=== PATIENT | male | born 1990 | race African-American/Black ===

== ENCOUNTER 2017-09-23 07:27 | Emergency (ER) | payer MEDICAID, OTHER ==
[~2017-09-23] VITALS: Ht 185.4 cm; Wt 72.6 kg
[2017-09-23 07:46] VITALS: BP 144/92
[2017-09-23] MEDS ORDERED: cefTRIAXone SOD 1,000 MG VL IM ONE (08:30)
== END 2017-09-23 08:50 | disposition home or self-care (01) ==
LOC: ER 07:27
DX: K04.7 Periapical abscess without sinus (principal)
CPT/HCPCS: 41800; 96372; 99283; J0696

== ENCOUNTER 2018-09-11 09:52 | Emergency (ER) | payer MEDICAID ==
[~2018-09-11] VITALS: Ht 185.4 cm; Wt 81.6 kg
[2018-09-11 10:16] VITALS: BP 135/82
[2018-09-11 11:07] LABS: Urine Bacteria NONE SEEN /hpf (None Seen); Urine Blood Negative /uL (Negative); Urine Mucus FEW (None Seen); Urine Specific Gravity 1.034 (1.001-1.035); Urine Sperm PRESENT /hpf (None Seen); Urine WBC 4 /hpf (0 - 3)
== END 2018-09-11 11:30 | disposition home or self-care (01) ==
LOC: ER 09:52
DX: R39.198 Other difficulties with micturition (principal); R35.0 Frequency of micturition; R39.15 Urgency of urination; J45.909 Unspecified asthma, uncomplicated; F17.210 Nicotine dependence, cigarettes, uncomplicated
CPT/HCPCS: 81001; 87086

== ENCOUNTER 2018-09-20 11:25 | Emergency (ER) | payer MEDICAID ==
[~2018-09-20] VITALS: Ht 185.4 cm; Wt 76.7 kg
[2018-09-20 11:45] VITALS: BP 131/77
[2018-09-20 12:25] LABS: Urine Bacteria NONE SEEN /hpf (None Seen); Urine Blood Negative /uL (Negative); Urine Mucus FEW (None Seen); Urine Specific Gravity 1.027 (1.001-1.035); Urine WBC 2 /hpf (0 - 3)
== END 2018-09-20 14:20 | disposition home or self-care (01) ==
LOC: ER 11:28
DX: S39.012A Strain of muscle, fascia and tendon of lower back, initial encounter (principal); R30.0 Dysuria; R35.0 Frequency of micturition; R39.15 Urgency of urination; J45.909 Unspecified asthma, uncomplicated; F17.210 Nicotine dependence, cigarettes, uncomplicated; X58.XXXA Exposure to other specified factors, initial encounter; Y93.89 Activity, other specified; Y99.8 Other external cause status; Y92.89 Other specified places as the place of occurrence of the external cause
CPT/HCPCS: 81001